=== PATIENT | male | born 1955 | race Caucasian/White ===

== ENCOUNTER → 2018-01-08 | Outpatient (CLI) | payer OTHER | LOC: BHFA 09:00 | PROVIDERS: ATTEND Internal Medicine Cardiovascular Disease | DX: I25.10 Atherosclerotic heart disease of native coronary artery without angina pectoris (principal) | CPT/HCPCS: 78452; 93017; A9500; J2785 ==

== ENCOUNTER → 2018-01-15 | Outpatient (CLI) | payer OTHER | LOC: BHLMT 09:15 | PROVIDERS: ATTEND Internal Medicine | DX: I25.10 Atherosclerotic heart disease of native coronary artery without angina pectoris (principal) | CPT/HCPCS: 93306-PO ==

== ENCOUNTER 2018-01-30 09:13 | Observation (INO) | payer OTHER ==
[2018-01-30] MEDS ORDERED: NS 1,000 ML IV ONE (09:19)
[2018-01-30] MEDS ORDERED: diphenhydrAMINE 25 MG CAP PO ONE ×2 (09:19→09:28)
[2018-01-30] MEDS ORDERED: FAMOTIDINE 20 MG TAB PO ONE (09:19)
[2018-01-30] MEDS ORDERED: DIAZEPAM 5 MG TAB PO ONE (09:19)
[2018-01-30] MEDS ORDERED: ASPIRIN EC 325 MG TAB PO ONE ×2 (09:19→09:28)
[2018-01-30] MEDS ORDERED: FAMOTIDINE 20 MG TAB ONE (09:28)
[2018-01-30] MEDS ORDERED: DIAZEPAM 5 MG TAB ONE (09:29)
[2018-01-30 09:52] LABS: PLATELET COUNT 190 10^3/uL (150-400)
[2018-01-30 10:00] LABS: INR 0.95 (0.83-1.16); PROTIME(PATIENT) 12.9 SEC (12.0-15.0)
--- NOTE | 2018-01-30 10:21 | PDPROPOC ---
Sedation Plan of Care Sedation Plan of Care: vital signs stable, mental status noted, patient educated of risks, benefits, alternatives, patient can tolerate sedation ASA Classification: ASA 2 Planned drugs: fentanyl, midazolam Mallampati Score: Class 3 Mallampati Reference Image: Patient passed 3-3-2 rule?: Yes
--- NOTE | 2018-01-30 10:21 | PDHPUP ---
History & Physical Update H&P update statement: This history and physical update is based on an assessment of the patient which was completed after admission or registration (within 24 hours), but prior to the surgery/procedure. H&P update: H&P reviewed & patient examined, no change in patient's condition since H&P completed (James test on right wrist normal at < 5 sec.)
[2018-01-30] MEDS ORDERED: LIDOCAINE 1% 300 MG/30 ML SDV ONE (11:43)
[2018-01-30] MEDS ORDERED: VERAPAMIL 5 MG/2 ML VIAL ONE (11:43)
[2018-01-30] MEDS ORDERED: HEPARIN 10,000 UNIT/10 ML MDV (1,000 UNIT/ML) ONE (11:43)
[2018-01-30] MEDS ORDERED: fentaNYL 100 MCG/2 ML INJ ONE (11:45)
[2018-01-30] MEDS ORDERED: MIDAZOLAM 2 MG/2 ML VIAL ONE (11:45)
[2018-01-30] MEDS ORDERED: IOPAMIDOL (ISOVUE-370) 150 ML BTL IV ONE (11:46)
[2018-01-30] MEDS ORDERED: BIVALIRUDIN 250 MG/5 ML VIAL IV ONE (12:49)
[2018-01-30] MEDS ORDERED: CLOPIDOGREL BISULFATE 75 MG TAB ONE (13:02)
[2018-01-30] MEDS ORDERED: NITROGLYCERIN 0.4 MG BTL SL PRN (13:18)
[2018-01-30] MEDS ORDERED: HYDROCODONE/APAP 5/325 TAB PO PRN (13:18)
[2018-01-30] MEDS ORDERED: TEMAZEPAM 15 MG CAP PO PRN (13:18)
[2018-01-30] MEDS ORDERED: ONDANSETRON 4 MG/2 ML VIAL IVP PRN (13:18)
[2018-01-30] MEDS ORDERED: ATROPINE SULFATE 1 MG/10 ML SYR IVP PRN (13:18)
[2018-01-30] MEDS ORDERED: LORazepam 2 MG/ML INJ IVP PRN (13:18)
[2018-01-30] MEDS ORDERED: CLOPIDOGREL BISULFATE 75 MG TAB PO ONE (13:18)
--- NOTE | 2018-01-30 13:29 | PDDXCAT ---
Diagnostic Cath Note - . Date: 01/30/18 Audio/Video Engineer: Bora Indication: other (Angina, CAD with prior PCI, and abnormal nuclear stress test. ) - Procedure Access: right groin (Procedure started via right radial approach. However, the radial artery could not be accessed. Suspect occlusion related to his prior radial catheterization.) Procedure: left heart catheterization, coronary angiography, left ventriculogram , other (PCI of the RCA) - Materials Left Heart Cath size: 6F Left Heart Cath materials: standard multipack (JL4, JR4, pigtail) - Findings-Left Heart Catheterization LM: Normal. LAD: Minimal irregularities. LCX: Minimal irregularities. RCA: Fluoroscopy reveals the presence of a previously placed stent in the mid- RCA. Angiography demonstrates severe restenosis of the stented segment. The proximal RCA, distal RCA, and its branches demonstrate minimal irregularities. LVEF: 60% Wall motion: Normal. Complications: None Estimated blood loss: <50ml Closure method: Angioseal Assessment: 1) CAD as described above. 2) Successful PCI of the RCA using a single drug-coated stent. 3) Normal LV systolic function. Intervention: Based on the patient's clinical history and diagnostic angiography, the decision was made to perform PCI of the RCA. The patient received intravenous Angiomax. A 6 Marshallese JR-4 catheter was advanced to the RCA ostium. An Intuition guidewire was advanced to the distal RCA. Predilatation of the restenosis lesion in the mid-RCA was performed with a 2.0 x 20 mm Emerge balloon. A 2.75 x 32 mm Synergy stent was advanced into position and deployed at high pressure. Final angiograms demonstrated 0% residual stenosis and BENIGNO-III flow.
[2018-01-30] MEDS ORDERED: NS 1,000 ML IV SCH (13:30)
--- NOTE | 2018-01-30 15:30 | CPEKG ---
Test Reason : OPEN Blood Pressure : / mmHG Vent. Rate : 073 BPM Atrial Rate : 072 BPM P-R Int : 166 ms QRS Dur : 076 ms QT Int : 366 ms P-R-T Axes : -02 009 066 degrees QTc Int : 404 ms Sinus rhythm Normal EKG. Confirmed by Dm Chase ([id number]) on 01/30/2018 3:30:14 PM Referred By: Confirmed By:Dm Chase
--- NOTE | 2018-01-30 15:38 | CPEKG ---
Test Reason : OPEN Blood Pressure : / mmHG Vent. Rate : 073 BPM Atrial Rate : 072 BPM P-R Int : 204 ms QRS Dur : 075 ms QT Int : 390 ms P-R-T Axes : 064 024 059 degrees QTc Int : 430 ms Sinus rhythm Possible left atrial abnormality. No significant change from January 30, 2018, 09:33 Confirmed by Dm Chase ([id number]) on 01/30/2018 3:37:42 PM Referred By: Confirmed By:Dm Chase
[2018-01-30] MEDS: PANTOPRAZOLE SODIUM 40 MG TAB PO SCH (22:32)
[2018-01-31 04:41] LABS: PLATELET COUNT 180 10^3/uL (150-400)
[2018-01-31 07:54] VITALS: BP 124/87
[2018-01-31] MEDS: PANTOPRAZOLE SODIUM 40 MG TAB PO SCH (08:20)
[2018-01-31] MEDS ORDERED: ATORVASTATIN CALCIUM 40 MG TAB PO SCH (09:00)
[2018-01-31] MEDS ORDERED: EXFORGE PO SCH (09:00)
[2018-01-31] MEDS ORDERED: ASPIRIN EC 325 MG TAB PO SCH (09:00)
[2018-01-31] MEDS ORDERED: OMEGA-3 FATTY ACIDS 1,000 MG CAP PO SCH (09:00)
[2018-01-31] MEDS ORDERED: CLOPIDOGREL BISULFATE 75 MG TAB PO SCH (09:00)
--- NOTE | 2018-01-31 11:07 | GDS ---
REASON FOR ADMISSION: Coronary artery disease. HOSPITAL COURSE: Please refer to my recent office note which serves as the admission history and phy sical for this hospital encounter. Also please refer to my dictated cardiac catheterization report. Briefly, the patient is a 63-year-old male with a history of coronary artery disease for which he re ceived PCI of the RCA in October of 2006. He recently presented with recurrent chest discomfort. A p harmacologic nuclear stress test demonstrated a moderate-size, moderate-severity, partially fixed/par tially reversible inferior perfusion defect. On that basis, he was scheduled for cardiac catheteriza tion. He underwent cardiac catheterization yesterday. His left ventricular systolic function is normal wit h an ejection fraction of 60%. The left anterior descending and circumflex demonstrated minimal joel nal irregularities. The RCA had high-grade restenoses of the stented segment but otherwise had only minimal irregularities. He underwent PCI with placement of a 2.75 x 32 mm Synergy stent. The angiog raphic outcome was excellent. Overnight, he has had no problems at his right femoral catheterization site. Of note, his procedure was initially started from the right radial approach. However, the ra dial artery could not be accessed. I suspect it may be chronically occluded related to his previous catheterization in 2006. RECOMMENDATIONS AND DISPOSITION: The patient is discharged in stable condition. His lipid panel yes terday demonstrated an LDL cholesterol of 110 on 40 mg of atorvastatin daily. His goal LDL should be less than 70. His atorvastatin will be increased to 80 mg daily. Clopidogrel 75 mg daily will be a dded to his regimen for the next 12 months. He should continue to pursue heart healthy dietary and e xercise habits. He has a followup appointment with me in the [place] office of [facility] on Feb at 11:15 a.m. DISCHARGE DIAGNOSES: 1. Coronary artery disease. 2. Status post successful percutaneous coronary intervention of the right coronary artery with place ment of a single drug-coated stent. 3. Hyperlipidemia. /[id number]/MODL
--- NOTE | 2018-01-31 12:20 | CPEKG ---
Test Reason : OPEN Blood Pressure : / mmHG Vent. Rate : 066 BPM Atrial Rate : 066 BPM P-R Int : 176 ms QRS Dur : 074 ms QT Int : 389 ms P-R-T Axes : 041 031 065 degrees QTc Int : 408 ms Sinus rhythm Possible left atrial abnormality No significant change from January 30, 2018 Confirmed by Dm Chase ([id number]) on 01/31/2018 12:19:41 PM Referred By: Confirmed By:Dm Chase
== END 2018-01-31 11:50 | disposition home or self-care (01) ==
LOC: FCATH 09:13 → F2W 13:20
PROVIDERS: ADMIT Internal Medicine Interventional Cardiology; ATTEND Internal Medicine Interventional Cardiology
DX: I25.10 Atherosclerotic heart disease of native coronary artery without angina pectoris (principal); T82.855A Stenosis of coronary artery stent, initial encounter; R94.39 Abnormal result of other cardiovascular function study; E78.5 Hyperlipidemia, unspecified; I10 Essential (primary) hypertension; Z79.82 Long term (current) use of aspirin; Z87.891 Personal history of nicotine dependence; Z82.49 Family history of ischemic heart disease and other diseases of the circulatory system; Z95.5 Presence of coronary angioplasty implant and graft
CPT/HCPCS: 93005; 93458; C1725; C1760; C1769; C1874; C1887; C9600; J0583; J1644; J2250; J3010; Q9967